=== PATIENT | female | born 1995 | race Hispanic/Latino ===

== ENCOUNTER 2019-03-24 10:50 | Emergency (ER) | payer OTHER ==
[~2019-03-24] VITALS: Ht 162.6 cm; Wt 123.4 kg
[2019-03-24] MEDS ORDERED: NAPROSYN500 MG PO (11:39)
[2019-03-24] MEDS ORDERED: AUGMENTIN 875-1 EACH PO (11:39)
[2019-03-24 12:41] VITALS: BP 142/75
== END 2019-03-24 12:18 | disposition home or self-care (01) ==
LOC: FSED 10:50
DX: H65.02 Acute serous otitis media, left ear (principal); R05 Cough; I10 Essential (primary) hypertension
CPT/HCPCS: 99283

== ENCOUNTER 2019-11-16 10:41 | Emergency (ER) | payer SELFPAY ==
[~2019-11-16] VITALS: Ht 157.5 cm; Wt 124.4 kg
[~2019-11-16 10:41] MED LIST: AUGMENTIN 875-1 EACH PO; NAPROSYN500 MG PO
[2019-11-16] MEDS ORDERED: KETOROLAC TROMETHAMINE 30 MG/ML VIAL IV ONE (11:00)
--- NOTE | 2019-11-16 11:15 | NUR ---
ultrasound is 45 minute ETA
[2019-11-16] MEDS ORDERED: KETOROLAC TROMETHAMINE 30 MG/ML VIAL ONE (11:28)
[2019-11-16] MEDS ORDERED: SODIUM CHLORIDE 0.9% 1000ML 1,000 ML IV STA (12:06)
[2019-11-16] MEDS ORDERED: INSULIN REGULAR, HUMAN 100 UNIT/1 ML 3ML VIAL IV ONE (12:15)
--- NOTE | 2019-11-16 12:30 | Diagnostic Imaging Report ---
Right Upper Quadrant Ultrasound History: abdominal pain Comparison: none Findings: The liver is echogenic. No hepatic mass or intrahepatic biliary dilation. Multiple shadowing echogenic lesions are seen within the gallbladder, consistent with cholelithiasis. Mild concentric gallbladder wall thickening, measuring up to 6 mm. No definite pericholecystic fluid. A positive sonographic Camacho sign is reported. Common bile duct measures 5mm. Pancreas not well seen due to overlying bowel gas. Right kidney demonstrates no hydronephrosis, shadowing calculus, or mass lesion. Right kidney measures 12.6 x 6.2 x 6.4cm. Impression: 1. Cholelithiasis, with findings concerning for acute cholecystitis. 2. Diffuse fatty infiltration of the liver. Signed by: Michael Van MD on 11/16/2019 12:28 PM
[2019-11-16] MEDS ORDERED: SODIUM CHLORIDE 0.9% 1000ML 1,000 ML ONE (12:32)
[2019-11-16] MEDS ORDERED: INSULIN REGULAR, HUMAN 100 UNIT/1 ML 3ML VIAL ONE (12:33)
[2019-11-16] MEDS ORDERED: MORPHINE SULFATE 2 MG/ML SYR 1ML IV STA (12:50)
[2019-11-16] MEDS ORDERED: ACETAMINOPHEN 325 MG TAB PO ONE (13:00)
[2019-11-16] MEDS ORDERED: CEFTRIAXONE SOD 1 GM VIAL IV ONE (13:00)
--- NOTE | 2019-11-16 13:00 | NUR ---
Called transfer center to set up transfer to [facility]
[2019-11-16] MEDS ORDERED: CEFTRIAXONE SOD 1 GM/NS 50 ML 50 ML IV ONE ×2 (13:15→14:31)
--- NOTE | 2019-11-16 14:02 | NUR ---
Called [facility] to transport pt to [facility] [place]
[2019-11-16] MEDS ORDERED: ACETAMINOPHEN 325 MG TAB ONE (14:30)
[2019-11-16] MEDS ORDERED: MORPHINE SULFATE INJ 4 MG/ML INJ 1ML ONE (14:30)
[2019-11-16 15:30] VITALS: BP 118/46
--- NOTE | 2019-11-16 15:38 | NUR ---
Report to AZUCENA Gusman at [phone].
--- NOTE | 2019-11-16 15:39 | NUR ---
[place] [facility] [phone] with comfirmation recv'd and they called and stated that they had not recv'd it and so I faxed it again at [phone]
== END 2019-11-16 15:05 | disposition other institution (70) ==
LOC: FSED 10:41
DX: R10.11 Right upper quadrant pain (principal); R11.2 Nausea with vomiting, unspecified; K80.00 Calculus of gallbladder with acute cholecystitis without obstruction; E11.65 Type 2 diabetes mellitus with hyperglycemia
CPT/HCPCS: 36415; 76700; 80053; 80076; 81003; 81025; 82948; 85025; 96374; 96375; 99284; J0696; J1817; J1885; J2270; J7030